=== PATIENT | male | born 1950 | race African-American/Black ===

== ENCOUNTER 2018-09-17 02:23 | Emergency (ER) | payer OTHER ==
[~2018-09-17] VITALS: Ht 182.9 cm; Wt 104.3 kg
[2018-09-17] MEDS ORDERED: cloNIDine HCL 0.1 MG TAB PO ONE ×2 (03:00→05:30)
[2018-09-17] MEDS ORDERED: IPRATROPIUM BROM 0.5 MG/2.5ML INH SOL NEB ONE (04:00)
[2018-09-17] MEDS ORDERED: ALBUTEROL SULF 2.5 MG/0.5ML(0.5%) NEB SOLN NEB ONE (04:00)
[2018-09-17] MEDS ORDERED: cloNIDine HCL 0.1 MG TAB ONE (04:05)
[2018-09-17 04:41] LABS: Albumin 3.7 g/dL (3.4-5.0); Calcium 8.1 mg/dL (8.5-10.1); Magnesium 2.5 mg/dL (1.6-2.6); Potassium 3.3 mmol/L (3.5-5.1)
[2018-09-17 04:43] LABS: Basophils # (auto) 0.1 uL; Basophils % (auto) 0.9 % (0.0-2.0); Eosinophils # (auto) 0.2 uL; Eosinophils % (auto) 1.9 % (0.0-7.0); Hematocrit 42.7 % (41.0-53.0); Hemoglobin 14.2 g/dL (13.5-17.5); Lymphocytes # (auto) 1.9 uL; Lymphocytes % (auto) 17.8 % (10.0-50.0); Mean Corpuscular Hemoglobin 29.4 pg (28.0-32.0); Mean Corpuscular Hgb Conc. 33.3 g/dL (32.0-36.0); Mean Corpuscular Volume 88.4 fL (80.0-100.0); Monocytes # (auto) 0.9 uL; Monocytes % (auto) 8.7 % (0.0-12.0); Neutrophils # (auto) 7.6 uL; Neutrophils % (auto) 70.7 % (37.0-80.0); Platelet Count (auto) 241 10^3/uL (140-450); Red Blood Cells 4.83 10^6/uL (4.5-5.90); Red Cell Distribution Width 14.5 % (11.8-14.3); White Blood Cell 10.8 10^3/uL (4.4-10.8)
[2018-09-17 04:44] LABS: Urine Bacteria FEW /hpf (None Seen); Urine Blood Negative /uL (Negative); Urine Mucus FEW (None Seen); Urine Specific Gravity 1.009 (1.001-1.035); Urine WBC 1 /hpf (0 - 3)
[2018-09-17 04:47] LABS: BUN/Creatinine Ratio 9.2; Bilirubin, Total 0.6 mg/dL (0.2-1.0); Total Protein 7.6 g/dL (6.4-8.2)
[2018-09-17 06:07] VITALS: BP 128/77
== END 2018-09-17 06:46 | disposition home or self-care (01) ==
LOC: EDBD 02:23 → ER 02:30
DX: I11.0 Hypertensive heart disease with heart failure (principal); I50.9 Heart failure, unspecified
CPT/HCPCS: 36415; 71045; 80053; 81001; 83735; 83880; 84484; 85025; 93005; 94640; 99284; J7611; J7644

== ENCOUNTER 2019-12-01 10:00 | Inpatient (IN) | payer OTHER ==
[2019-12-01] VITALS (7 sets, daily range): BP systolic 94–126; BP diastolic 46–67
[~2019-12-01] VITALS: Ht 165.1 cm; Wt 110.0 kg
[2019-12-01] MEDS ORDERED: SODIUM CHLORIDE 0.9% 1,000 ML IVB ONE (10:32)
[2019-12-01] MEDS ORDERED: METOCLOPRAMIDE HCL 5MG/ml INJ 2ml VIAL IV ONE (10:45)
[2019-12-01 10:52] LABS: Basophils # (auto) 0 10 ^3/uL (0-0.2); Basophils % (auto) 0.1 % (0.0-2.0); Eosinophils # (auto) 0 10 ^3/uL (0-0.8); Nucleated Red Blood Cells % 0.2 %
[2019-12-01 10:54] LABS: Hematocrit 14.1 % (41.0-53.0); Lymphocytes # (auto) 2.2 10 ^3/uL (0.4-5.4); Lymphocytes % (auto) 8.8 % (10.0-50.0); Mean Corpuscular Hemoglobin 29.8 pg (28.0-32.0); Mean Corpuscular Hgb Conc. 31.8 g/dL (32.0-36.0); Mean Corpuscular Volume 93.6 fL (80.0-100.0); Monocytes # (auto) 2.1 10 ^3/uL (0-1.3); Monocytes % (auto) 8.1 % (0.0-12.0); Neutrophils # (auto) 21.1 10 ^3/uL (1.6-8.6); Platelet Count (auto) 153 10^3/uL (140-450); Red Blood Cells 1.51 10^6/uL (4.5-5.90); Red Cell Distribution Width 14.5 % (11.8-14.3); White Blood Cell 25.4 10^3/uL (4.4-10.8)
[2019-12-01 10:59] LABS: Hemoglobin 4.5 g/dL (13.5-17.5)
[2019-12-01 11:12] LABS: Albumin 2.3 g/dL (3.4-5.0); Calcium 7.6 mg/dL (8.5-10.1); Magnesium 2.4 mg/dL (1.6-2.6); Potassium 3.6 mmol/L (3.5-5.1)
[2019-12-01 11:18] LABS: BUN/Creatinine Ratio 26.8; Bilirubin, Total 0.1 mg/dL (0.2-1.0); Total Protein 4.8 g/dL (6.4-8.2)
[2019-12-01 12:40] LABS: Hematocrit 14.6 % (41.0-53.0)
[2019-12-01 12:42] LABS: Hemoglobin 4.7 g/dL (13.5-17.5)
[2019-12-01 17:02] LABS: Urine Bacteria FEW /hpf (None Seen); Urine Blood Negative /uL (Negative); Urine Specific Gravity 1.017 (1.001-1.035); Urine WBC 1 /hpf (0 - 3)
[2019-12-01] MEDS ORDERED: PANTOPRAZOLE 40mg/50ML NS AE 50 ML IV ONE (20:15)
[2019-12-01] MEDS ORDERED: PANTOPRAZOLE 40 MG/10 ML VIAL INJ IV ONE (20:15)
[2019-12-01 21:42] LABS: Hematocrit 20.3 % (41.0-53.0)
[2019-12-01 21:53] LABS: Hemoglobin 6.5 g/dL (13.5-17.5)
[2019-12-01] MEDS ORDERED: PIPERACILLIN-TAZOB 3.375GM 100 ML IV ONE (23:15)
[2019-12-02] VITALS (13 sets, daily range): BP systolic 110–153; BP diastolic 53–86
[2019-12-02 00:03] LABS: Lactic Acid w/Reflex 2.9 mmol/L (0.4-2.0)
[2019-12-02] MEDS ORDERED: OCTREOTIDE ACETATE 500 MCG/ML VL ONE (01:34)
[2019-12-02] MEDS: OCTREOTIDE ACETATE 500 MCG in SODIUM CHL 0.9% 99 ML IV SCH ×2 (01:43→11:19)
[2019-12-02] MEDS ORDERED: ONDANSETRON HCL 4 MG/2 ML VIAL IV PRN (01:45)
[2019-12-02] MEDS ORDERED: metroNIDAZOLE 500MG/100ML 100 ML IV ONE (01:45)
[2019-12-02] MEDS ORDERED: NITROGLYCERIN 0.4 MG SL TAB SL PRN (01:45)
[2019-12-02] MEDS ORDERED: MORPHINE SULFATE 4 MG/ML SYR/VIAL IV PRN (01:45)
[2019-12-02] MEDS ORDERED: MORPHINE SULF INJ 2 MG/ML SYRINGE 1ML IV PRN (01:45)
[2019-12-02] MEDS: SODIUM CHLORIDE 0.9% 1,000 ML IV SCH ×2 (01:50→17:24)
[2019-12-02] MEDS: PANTOPRAZOLE 40mg/50ML NS AE 50 ML IV SCH ×3 (01:50→11:58)
--- NOTE | 2019-12-02 02:48 | NUR ---
Telemetry admit from ER KALLI GRAY admitted to Telemetry unit after SBAR received. Patient oriented to Lashon Capone, primary RN, unit, room, bed, and unit policies regarding patient care and visiting hours. Patient now on continuous telemetry monitoring, tele box # [[id number]] and telemetry reading on arrival to unit is [SR [id number]]. Patient placed on bedside oxygen, weighed by bedscale and encouraged to call if they need something. All questions and concerns addressed, patient verbalized understanding. Note: []
--- NOTE | 2019-12-02 04:01 | NUR ---
BLOOD TRANSFUSION STARTED @ 0359. VITALS STABLE, TEMP 98.6, HR 84, RR 17, BP 116/61, O2 SAT 100%. PATIENT EDUCATED ON S/S OF REACTION OF TRANSFUSION. PATIENT VERBALIZED UNDERSTANDING. CONTINUE TO MONITOR.
[2019-12-02] MEDS ORDERED: POTA10TA79 PO (05:58)
[2019-12-02] MEDS ORDERED: LISI40TA PO (05:58)
[2019-12-02] MEDS ORDERED: AMLO5TAB15 PO (05:58)
[2019-12-02] MEDS ORDERED: ASPI-404 PO (05:58)
[2019-12-02] MEDS ORDERED: TERA5CAP42 PO (05:58)
[2019-12-02] MEDS ORDERED: FURO1TAB33 PO (05:58)
[2019-12-02] MEDS ORDERED: DORZ2SOL18 EACHEYE (05:58)
[2019-12-02] MEDS ORDERED: ATOR20TA50 PO (05:58)
[2019-12-02] MEDS ORDERED: ATEN50TA PO (05:58)
[2019-12-02] MEDS ORDERED: PIPERACILLIN-TAZOB 3.375GM 100 ML IV SCH (06:00)
[2019-12-02] MEDS ORDERED: metroNIDAZOLE 500MG/100ML 100 ML IV SCH (06:00)
--- NOTE | 2019-12-02 06:50 | NUR ---
BLOOD TRANSFUSION COMPLETED @ 0647, PATIENT TOLERATED WELL. NO S/S OF REACTION OF TRANSFUSION NOTED. VITALS STABLE, TEMP 99, HR 89, RR 20. BP 139/80. O2 SAT 98% ON 2L/NC. CONTINUE TO MONITOR.
[2019-12-02] MEDS: metroNIDAZOLE 500MG/100ML 100 ML IV SCH ×3 (07:00→22:55)
--- NOTE | 2019-12-02 07:21 | NUR ---
CALLED PHARMACY TO RESCHEDULE PATIENT'S ABX SINCE PATIENT JUST FINISHED BLOOD TRANSFUSION EARLIER. DAY SHIFT RN CHEKO AWARE. CONTINUE TO MONITOR.
--- NOTE | 2019-12-02 07:30 | NUR ---
Opening Shift Note RECEIVED REPORT FROM NOC RN. Assumed care of patient, awake and alert. PATIENT ON OXYGEN AT 2 LPM VIA NASAL CANNULA WITH no S/S of distress/SOB or pain. BED IN LOWEST, LOCKED POSITION WITH SIDERAILS UP x2 AND CALL LIGHT WITHIN REACH. Instructed on POC and to call for assist PRN, will continue to monitor for changes Q1hr and PRN.
[2019-12-02 07:55] LABS: Hemoglobin 8.4 g/dL (13.5-17.5)
[2019-12-02 07:57] LABS: Hematocrit 25.5 % (41.0-53.0)
[2019-12-02] MEDS: PIPERACILLIN-TAZOB 3.375GM 100 ML IV SCH ×3 (08:56→19:56)
--- NOTE | 2019-12-02 15:54 | NUR ---
0283 12/02/19 Contacted [facility] and spoke with operations support analyst Marie (working with assigned adult protective caseworker Deyanira)and requested that authorization be provided for patient's continued stay. Per Marie inpatient authorization has been extended until 12/03/19 1000-she will have the extended authorization faxed over. I asked Marie to let Mirror [employer] Supervisor Deyanira know that patient is scheduled for EGD/colonoscopy tomorrow. Per Dr. Mike Jones patient not stable for transfer today.
--- NOTE | 2019-12-02 19:56 | NUR ---
RECEIVED PATIENT FROM DAY SHIFT RN. PATIENT RESTING IN BED. NO S/S OF DISTRESS NOTED. DENIED PAIN FOR NOW. REINFORCED NPO AFTER MIDNIGHT FOR PROCEDURE TOMORROW. PATIENT VERBALIZED UNDERSTANDING. POC INSTRUCTED AND ENCOURAGED PATIENT TO CALL FOR MUSIC TEACHER IF NEEDED. BED IN LOWEST POSITION WITH SIDE RAILS UP X 2. CALL GIBBS WITHIN REACH. ALARM ON. CONTINUE TO MONITOR FOR CHANGES Q1H AND PRN
[2019-12-02] MEDS: PANTOPRAZOLE 40 MG/10 ML VIAL INJ IV SCH (21:40)
--- NOTE | 2019-12-02 23:00 | NUR ---
IV removal IV ON RIGHT HAND WENT BAD. IV DC'd with clean sterile technique, catheter fully intact. Pressure dressing applied to site. Patient tolerated well. NOTE:
--- NOTE | 2019-12-03 00:10 | NUR ---
PATIENT SLEEPING. WATER REMOVED FROM BEDSIDE. NPO FROM NOW ON. CONTINUE TO MONITOR.
[2019-12-03] MEDS: PIPERACILLIN-TAZOB 3.375GM 100 ML IV SCH ×4 (02:10→20:57)
--- NOTE | 2019-12-03 03:45 | NUR ---
PATIENT SLEEPING. NO S/S OF DISTRESS NOTED. CONTINUE CARE.
[2019-12-03] MEDS: SODIUM CHLORIDE 0.9% 1,000 ML IV SCH ×2 (04:25→17:45)
[2019-12-03 05:00] VITALS: BP 133/83
[2019-12-03] MEDS: metroNIDAZOLE 500MG/100ML 100 ML IV SCH ×3 (06:19→23:33)
[2019-12-03 06:56] LABS: Hematocrit 24.7 % (41.0-53.0)
[2019-12-03 06:57] LABS: Mean Corpuscular Hgb Conc. 32.5 g/dL (32.0-36.0); Mean Corpuscular Volume 92.4 fL (80.0-100.0); Platelet Count (auto) 167 10^3/uL (140-450); Red Blood Cells 2.68 10^6/uL (4.5-5.90); Red Cell Distribution Width 15.6 % (11.8-14.3); White Blood Cell 25.2 10^3/uL (4.4-10.8)
[2019-12-03 07:07] LABS: Basophils % (manual) 0 (0.0-2.0); Blast Cells 0; Eosinophils % (manual) 0 (0-7); Metamyelocytes % 0; Myelocytes % 0; Promyelocytes % 0; Reactive Lymphocytes 0
[2019-12-03 07:10] LABS: Albumin 2.5 g/dL (3.4-5.0); Potassium 4.1 mmol/L (3.5-5.1)
[2019-12-03 07:14] LABS: BUN/Creatinine Ratio 22.9; Bilirubin, Total 0.6 mg/dL (0.2-1.0); Total Protein 5.5 g/dL (6.4-8.2)
[2019-12-03 07:39] LABS: Band Neutrophils % (manual) 3; Lymphocytes % (manual) 6 (10.0-50.0); Monocytes % (manual) 4 (0-12)
[2019-12-03 08:00] VITALS: BP 147/83
[2019-12-03] MEDS ORDERED: fentaNYL CITRATE 100 MCG/2 ML VL ONE (08:20)
[2019-12-03] MEDS ORDERED: FLUMAZENIL 0.1 MG/ML INJ 10ML MDV IV ONE (08:20)
[2019-12-03] MEDS ORDERED: diphenhdrAMINE HCL 50 MG/1 ML VL ONE (08:20)
[2019-12-03] MEDS ORDERED: LIDOCAINE VISCOUS 2% 15ML UD ONE (08:20)
[2019-12-03] MEDS ORDERED: MIDAZOLAM HCL 5 MG/ML-1ML VIAL ONE (08:20)
[2019-12-03] MEDS ORDERED: SODIUM CHLORIDE LOCK 10 ML ONE (08:20)
[2019-12-03] MEDS ORDERED: NALOXONE HCL 0.4 MG/ML VIAL ONE (08:20)
[2019-12-03] MEDS ORDERED: ADENOSINE 91 MG in GIVE UN-DILUTED 0 ML IV STA (08:33)
[2019-12-03 08:37] VITALS: BP 147/83
[2019-12-03] MEDS: PANTOPRAZOLE 40 MG/10 ML VIAL INJ IV SCH ×2 (10:00→22:57)
--- NOTE | 2019-12-03 10:19 | NUR ---
GI at bedside MD Smith at bedside, aware of patient status. Per MD Smith, EGD will be cancelled for today. MD Smith requesting for stress test to be read today and INR must be done today for patient to have procedure tomorrow. Notified MD Smith regarding MD Jimenez's note to have EGD done regardless of whether stress test was done or not. Per MD Smith, patient will be rescheduled for EGD tomorrow if stress test and INR are done today.
--- NOTE | 2019-12-03 11:30 | NUR ---
Opening Shift Note Assumed care of patient, awake and alert. No S/S of distress/SOB or pain. Instructed on POC and to call for assist PRN, will continue to monitor for changes Q1hr and PRN. Fall precautions in place per safety protocol.
--- NOTE | 2019-12-03 12:24 | NUR ---
Nutrition Assessment Notes Please refer to link for full assessment notes. Est energy needs: 3091-9443 kcals (12-15 kcal/kgBW) Est protein needs: 74-81 gms/day (1.0-1.1 gm/kgAdjBW) Will continue to monitor and reassess prn. Addendum: 12/03/19 at [address] Amended: Links added.
[2019-12-03 12:40] LABS: INR 1.15 (0.9-1.15); Partial Thromboplastin Time < 20.0 sec (23.64-32.05)
[2019-12-03 13:00] VITALS: BP 156/121
--- NOTE | 2019-12-03 14:00 | NUR ---
Paged MD Jones regarding patients blood pressure reading 156/121. Per MD Jones, no new orders at this time. Willc cont to monitor patient.
[2019-12-03 17:00] VITALS: BP 162/87
--- NOTE | 2019-12-03 17:43 | NUR ---
Paged Hospitalist site acquisition manager regarding Patient BP 160/87. Per MD Medrano, order labetalol 10mg IV Q2H for SBP >150. Order read back and verified. Will carry out new orders and will cont to monitor patient.
[2019-12-03] MEDS: LABETALOL HCL 5 MG/ML ML 20ML VIAL IV PRN (17:57)
--- NOTE | 2019-12-03 19:23 | NUR ---
Endorsed care to night RN Kathy including MD Smith aware of results on stress test and INR done. Patient resting in bed, no distress, sob, or pain noted.
--- NOTE | 2019-12-03 19:23 | NUR ---
Opening Shift Note Assumed care of patient, awake and alert. No S/S of distress/SOB or pain. Bed in lowest locked position, side rails up x2, call light within reach. Patient aware to call for standby assistance before getting out of bed, patient verbalized understanding. Instructed on POC and to call for assist PRN, will continue to monitor for changes Q1hr and PRN.
[2019-12-03 22:00] VITALS: BP 159/90
--- NOTE | 2019-12-03 22:10 | NUR ---
Blood pressure noted to be 159/90 mm Hg during 22:00 vital sign check. Patient reassessed by this RN, blood pressure 148/86 mm Hg. No s/s of distress, will continue care.
[2019-12-04] MEDS: PIPERACILLIN-TAZOB 3.375GM 100 ML IV SCH ×4 (02:30→20:31)
[2019-12-04 05:00] VITALS: BP 146/86
[2019-12-04 05:56] LABS: Basophils # (auto) 0.1 10 ^3/uL (0-0.2); Basophils % (auto) 0.5 % (0.0-2.0); Eosinophils # (auto) 0.1 10 ^3/uL (0-0.8); Eosinophils % (auto) 0.6 % (0.0-7.0); Hematocrit 27.7 % (41.0-53.0); Hemoglobin 8.9 g/dL (13.5-17.5); Lymphocytes # (auto) 2.3 10 ^3/uL (0.4-5.4); Lymphocytes % (auto) 12.4 % (10.0-50.0); Mean Corpuscular Hemoglobin 30.1 pg (28.0-32.0); Monocytes # (auto) 1.8 10 ^3/uL (0-1.3); Monocytes % (auto) 9.9 % (0.0-12.0); Neutrophils # (auto) 14.3 10 ^3/uL (1.6-8.6); Neutrophils % (auto) 76.6 % (37.0-80.0); Nucleated Red Blood Cells % 0.9 %; Platelet Count (auto) 165 10^3/uL (140-450); Red Blood Cells 2.95 10^6/uL (4.5-5.90); Red Cell Distribution Width 15.7 % (11.8-14.3); White Blood Cell 18.7 10^3/uL (4.4-10.8)
[2019-12-04 06:13] LABS: Potassium 3.2 mmol/L (3.5-5.1)
[2019-12-04 06:27] LABS: Albumin 2.7 g/dL (3.4-5.0); BUN/Creatinine Ratio 13.7; Bilirubin, Total 0.8 mg/dL (0.2-1.0); Total Protein 5.5 g/dL (6.4-8.2)
[2019-12-04] MEDS: SODIUM CHLORIDE 0.9% 1,000 ML IV SCH ×2 (06:44→20:31)
[2019-12-04] MEDS: metroNIDAZOLE 500MG/100ML 100 ML IV SCH ×3 (06:44→23:56)
--- NOTE | 2019-12-04 07:02 | NUR ---
Closing Note Patient sitting up in bed, awake and alert. No s/s of distress. Call light within reach. Care endorsed to dayshift RN.
--- NOTE | 2019-12-04 07:55 | NUR ---
OPENING SHIFT NOTE Assumed care of patient. PT is awake and alert. No S/S of distress/SOB. Instructed on POC and to call for assist PRN, will continue to monitor for changes Q1hr and PRN.
[2019-12-04 08:00] VITALS: BP 167/94
[2019-12-04] MEDS ORDERED: FLUMAZENIL 0.1 MG/ML INJ 10ML MDV IV ONE (09:32)
[2019-12-04] MEDS ORDERED: NALOXONE HCL 0.4 MG/ML VIAL ONE (09:32)
[2019-12-04] MEDS ORDERED: SODIUM CHLORIDE LOCK 10 ML ONE (09:33)
[2019-12-04] MEDS ORDERED: diphenhdrAMINE HCL 50 MG/1 ML VL ONE (09:33)
[2019-12-04] MEDS ORDERED: LIDOCAINE VISCOUS 2% 15ML UD ONE (09:33)
[2019-12-04] MEDS: PANTOPRAZOLE 40 MG/10 ML VIAL INJ IV SCH (09:40)
[2019-12-04] MEDS: MIDAZOLAM HCL 5 MG/ML-1ML VIAL ONE ×2 (09:55→09:58)
[2019-12-04] MEDS: fentaNYL CITRATE 100 MCG/2 ML VL ONE ×2 (09:55→09:58)
--- NOTE | 2019-12-04 09:56 | NUR ---
Took PT DOWN TO GI LAB FOR PROCEDURE. INFORMED GI LAB NURSE OF HIGH BLOOD PRESSURE. STATED NO TO ADMINISTER PRN MEDICATIONS HE WOULD BE MEDICATED FOR PROCEDURE. NO DISTRESS NOTED FROM PT.
[2019-12-04 12:00] VITALS: BP 152/92
--- NOTE | 2019-12-04 13:36 | NUR ---
RECEIVED CALL FROM MIDDLE SCHOOL SCIENCE TEACHER REGARDING [facility] TRANSFER. CONTACTED DR VALDERRAMA. DR VALDERRAMA STATED THAT THE PT WILL NOT BE TRANSFERS HE WILL BE DISCHARGED TOMORROW 12/04. MIDDLE SCHOOL SCIENCE TEACHER IS AWARE.
[2019-12-04] MEDS: LABETALOL HCL 5 MG/ML ML 20ML VIAL IV PRN (16:33)
[2019-12-04 17:00] VITALS: BP 155/85
[2019-12-04 20:00] VITALS: BP 145/92
[2019-12-04 22:00] VITALS: BP 145/92
[2019-12-05] VITALS (9 sets, daily range): BP systolic 102–148; BP diastolic 61–91
[2019-12-05] MEDS: PIPERACILLIN-TAZOB 3.375GM 100 ML IV SCH ×4 (02:40→20:38)
[2019-12-05 05:40] LABS: Hematocrit 23.1 % (41.0-53.0); Hemoglobin 7.3 g/dL (13.5-17.5); Mean Corpuscular Hemoglobin 29.8 pg (28.0-32.0); Mean Corpuscular Hgb Conc. 31.5 g/dL (32.0-36.0); Mean Corpuscular Volume 94.6 fL (80.0-100.0); Platelet Count (auto) 192 10^3/uL (140-450); Red Blood Cells 2.44 10^6/uL (4.5-5.90); Red Cell Distribution Width 16.2 % (11.8-14.3); White Blood Cell 23.3 10^3/uL (4.4-10.8)
[2019-12-05 05:44] LABS: Basophils % (manual) 0 (0.0-2.0); Blast Cells 0; Promyelocytes % 0; Reactive Lymphocytes 0
[2019-12-05 05:56] LABS: Albumin 2.3 g/dL (3.4-5.0); Calcium 7.9 mg/dL (8.5-10.1); Potassium 3.2 mmol/L (3.5-5.1)
[2019-12-05] MEDS: SODIUM CHLORIDE 0.9% 1,000 ML IV SCH ×2 (06:00→09:01)
[2019-12-05 06:09] LABS: BUN/Creatinine Ratio 15.8; Bilirubin, Total 0.4 mg/dL (0.2-1.0); Total Protein 4.8 g/dL (6.4-8.2)
[2019-12-05] MEDS: metroNIDAZOLE 500MG/100ML 100 ML IV SCH ×3 (06:48→21:52)
--- NOTE | 2019-12-05 06:48 | NUR ---
Closing Note Patient sitting up in bed, awake and alert. No s/s of distress. Call light within reach. Care endorsed to dayshift RN.
[2019-12-05 08:15] LABS: Band Neutrophils % (manual) 5; Eosinophils % (manual) 1 (0-7); Lymphocytes % (manual) 25 (10.0-50.0); Metamyelocytes % 1; Monocytes % (manual) 6 (0-12); Myelocytes % 1
[2019-12-05] MEDS ORDERED: POTASSIUM CHL 20 Meq TABLET PO ONE (08:30)
[2019-12-05] MEDS: PANTOPRAZOLE 40 MG TAB PO SCH (09:00)
--- NOTE | 2019-12-05 11:07 | NUR ---
SPOKE WITH . DIRECTED TO CALL [facility]. [facility] STATED PT IS NOT STABLE FOR TRANSFER. STATED THEY WOULD CONTACT DR VALDERRAMA. WILL SPEAK WITH MD VALDERRAMA.
[2019-12-05] MEDS ORDERED: GOLYTELY 4L KIT PO ONE (13:00)
--- NOTE | 2019-12-05 13:49 | NUR ---
PHONED AIRBRUSH PAINTER ABOUT BLOOD TUBING SUPPLY FOR BLOOD ADMINISTRATION ORDER. SHE STATED TO CIRILO VELÁSQUEZ IN EDUCATION. AWAITING CALLBACK.
--- NOTE | 2019-12-05 19:04 | NUR ---
TRANSFUSED 1 UNIT PRBC'S. PT TOLERATED WELL. VITAL SIGNS THROUGHOUT REMAINED WNL. WILL CONTINUE TO MONITOR AND ENDORSE TO NIGHT NURSE.
[2019-12-05 21:04] LABS: Hematocrit 25.9 % (41.0-53.0)
[2019-12-06] VITALS (8 sets, daily range): BP systolic 131–153; BP diastolic 72–84
[2019-12-06 05:23] LABS: Hemoglobin 7.3 g/dL (13.5-17.5); Mean Corpuscular Hemoglobin 29.2 pg (28.0-32.0)
[2019-12-06 05:25] LABS: Hematocrit 23.1 % (41.0-53.0); Mean Corpuscular Hgb Conc. 31.8 g/dL (32.0-36.0); Mean Corpuscular Volume 91.9 fL (80.0-100.0); Platelet Count (auto) 176 10^3/uL (140-450); Red Blood Cells 2.51 10^6/uL (4.5-5.90); Red Cell Distribution Width 16.5 % (11.8-14.3); White Blood Cell 18.4 10^3/uL (4.4-10.8)
[2019-12-06] MEDS: PIPERACILLIN-TAZOB 3.375GM 100 ML IV SCH ×4 (05:28→20:21)
[2019-12-06 05:45] LABS: Basophils % (manual) 0 (0.0-2.0); Blast Cells 0; Metamyelocytes % 0; Myelocytes % 0; Promyelocytes % 0; Reactive Lymphocytes 0
[2019-12-06] MEDS ORDERED: GOLYTELY 4L KIT PO ONE (06:00)
[2019-12-06 06:43] LABS: Band Neutrophils % (manual) 5; Eosinophils % (manual) 2 (0-7); Lymphocytes % (manual) 24 (10.0-50.0); Monocytes % (manual) 6 (0-12)
[2019-12-06] MEDS: metroNIDAZOLE 500MG/100ML 100 ML IV SCH ×3 (07:00→23:23)
[2019-12-06] MEDS ORDERED: SIMETHICONE 40 MG/0.6 ML ORAL DROP ONE (08:29)
[2019-12-06] MEDS ORDERED: NALOXONE HCL 0.4 MG/ML VIAL ONE (08:30)
[2019-12-06] MEDS ORDERED: FLUMAZENIL 0.1 MG/ML INJ 10ML MDV IV ONE (08:30)
[2019-12-06] MEDS ORDERED: SODIUM CHLORIDE LOCK 10 ML ONE (08:30)
[2019-12-06] MEDS ORDERED: diphenhdrAMINE HCL 50 MG/1 ML VL ONE (08:31)
--- NOTE | 2019-12-06 09:09 | NUR ---
Patient taken to OR via gurney for colonoscopy. Will cont to monitor patient when he returns to unit.
[2019-12-06] MEDS: fentaNYL CITRATE 100 MCG/2 ML VL ONE ×2 (09:20→09:23)
[2019-12-06] MEDS: MIDAZOLAM HCL 5 MG/ML-1ML VIAL ONE ×3 (09:20→09:26)
--- NOTE | 2019-12-06 10:15 | NUR ---
Patient back from procedure. Patient shows no signs of distress, sob, or pain. Will cont to monitor patient.
[2019-12-06] MEDS: PANTOPRAZOLE 40 MG TAB PO SCH (10:34)
--- NOTE | 2019-12-06 11:36 | NUR ---
Hospitalist at bedside MD Jones at bedside, aware of patient status including low K level on 12/04. MD Jones ordered am LABS and HH for 1800 tonight. Will cont to monitor patient.
[2019-12-06] MEDS: SODIUM CHLORIDE 0.9% 1,000 ML IV SCH (12:25)
--- NOTE | 2019-12-06 13:40 | NUR ---
Nutrition Follow-up Wt.: 107.20 kg Pt was NPO for colonoscopy today. Currently of 2g Na diet with good PO intake aeb intake of 75%. Will continue to monitor PO intake, skin status, pertinent labs and weight trends. Will f/u in 3 to 5 days. Est energy needs: 9507-0734 kcals (12-15 kcal/kg BW) Est protein needs: 74-81 gms/day (1.0-1.1 gm/kg AdjBW) Labs 12/04: K 3.2 L, Cl 114 H, BUN 23 H, Cr 1.46 H, Glucose 139 H, Ca 7.9 L, TP 4.8 L, Albumin 2.3 L Skin: Phillip scale 21, low risk, no wounds. GI: Pt had BM on 12/05/19 per documentation analyst. PES: 1) Altered nutrition related lab values r/t current medical condition aeb hypernatremia, hyperchloremia, hyperglycemia, elevated RFTs, low GFR, hypocalcemia, hypoproteinemia, hypoalbuminemia Recommendations: 1) Continue current plan of care
--- NOTE | 2019-12-06 16:19 | NUR ---
assessment Patient is a 69 year old male who is alert and oriented. Patients cognitive abilities are intact. Prior to admission patient lived home with his Oscar and functioned independently. Patient informed me he is able to care for his own ADLs. Patient has been informed regarding order to transfer to [facility]. Patient agrees to transfer. Per patient his PCP is Dr Garrett in [place]. I informed patient he has a right to speak to a social media senior associate regarding all care. I informed patient he has a right to participate in any and all discharge planning. Patient does not have a POA and advanced directive. I have offered patient information on POA and advanced directives. I informed the patient the advantages and benefits of having an Advanced Directive. Patient verbalized understanding and agreed to discharge plan. Addendum: 12/06/19 at 1621 by Catina GARCIA Amended: Links added.
--- NOTE | 2019-12-06 19:23 | NUR ---
Endorsed care to mirza Salguero. Patient restin gin bed, no distress, sob, or pain noted.
--- NOTE | 2019-12-06 19:29 | NUR ---
Received critical hemoglobin level of 6.8.
[2019-12-06 19:30] LABS: Hematocrit 21.5 % (41.0-53.0)
[2019-12-06 19:35] LABS: Hemoglobin 6.8 g/dL (13.5-17.5)
--- NOTE | 2019-12-06 19:48 | NUR ---
PLACED 1 UNIT PRBC ORDER VIA COMMUNICATION ORDER FROM MD Lolly VALDERRAMA FOR HEMOGLOBIN <7.0
--- NOTE | 2019-12-06 20:15 | NUR ---
IV insertion IV access obtained, via clean sterile technique by inserting 22 gauge catheter at right hand after 1 attempt(s). IV secured properly. No trauma to site. Patient tolerated procedure well.
--- NOTE | 2019-12-06 21:19 | NUR ---
1 UNIT OF PRBC TRANSFUSION STARTED AT THIS TIME.
[2019-12-07] VITALS (7 sets, daily range): BP systolic 134–160; BP diastolic 76–89
--- NOTE | 2019-12-07 | NUR ---
Blood transfusion completed at this time. No suspected reaction.
[2019-12-07] MEDS: PIPERACILLIN-TAZOB 3.375GM 100 ML IV SCH ×4 (01:33→20:22)
[2019-12-07] MEDS: SODIUM CHLORIDE 0.9% 1,000 ML IV SCH ×2 (01:39→15:05)
[2019-12-07 02:09] LABS: Hematocrit 22.5 % (41.0-53.0)
[2019-12-07 02:11] LABS: Hemoglobin 7.3 g/dL (13.5-17.5)
[2019-12-07] MEDS: metroNIDAZOLE 500MG/100ML 100 ML IV SCH ×3 (06:37→23:39)
--- NOTE | 2019-12-07 07:20 | NUR ---
Opening shift note Care of patient assumed from NOC RN. patient is AOx4 no s/s of distress, sob or pain noted at this time. Bed is in lowest locked position, side rails up x2, call light within reach. Updated patient on plan of care and patient verbalized understanding. I will continue to monitor Q1HR and PRN.
[2019-12-07 08:17] LABS: Eosinophils # (auto) 0.3 10 ^3/uL (0-0.8); Hemoglobin 7.9 g/dL (13.5-17.5); Lymphocytes # (auto) 2.2 10 ^3/uL (0.4-5.4)
[2019-12-07 08:19] LABS: Basophils # (auto) 0.1 10 ^3/uL (0-0.2); Basophils % (auto) 0.4 % (0.0-2.0); Eosinophils % (auto) 2.6 % (0.0-7.0); Hematocrit 24.9 % (41.0-53.0); Mean Corpuscular Hemoglobin 28.4 pg (28.0-32.0); Mean Corpuscular Hgb Conc. 31.7 g/dL (32.0-36.0); Mean Corpuscular Volume 89.4 fL (80.0-100.0); Monocytes # (auto) 1.1 10 ^3/uL (0-1.3); Monocytes % (auto) 8.9 % (0.0-12.0); Neutrophils # (auto) 9.1 10 ^3/uL (1.6-8.6); Neutrophils % (auto) 71.1 % (37.0-80.0); Nucleated Red Blood Cells % 1.4 %; Platelet Count (auto) 177 10^3/uL (140-450); Red Blood Cells 2.78 10^6/uL (4.5-5.90); Red Cell Distribution Width 18.7 % (11.8-14.3); White Blood Cell 12.8 10^3/uL (4.4-10.8)
[2019-12-07 08:38] LABS: Albumin 2.4 g/dL (3.4-5.0); BUN/Creatinine Ratio 11.7; Calcium 7.8 mg/dL (8.5-10.1)
[2019-12-07 08:40] LABS: Bilirubin, Total 0.7 mg/dL (0.2-1.0); Total Protein 5.1 g/dL (6.4-8.2)
[2019-12-07] MEDS: PANTOPRAZOLE 40 MG TAB PO SCH (09:10)
[2019-12-07 09:16] LABS: Potassium 2.8 mmol/L (3.5-5.1)
--- NOTE | 2019-12-07 09:23 | NUR ---
Called Physician Received call from lab regarding critical k+ value of 2.8. Notified Dr. Jones and Per MD give 40 MEQ of Potassium PO.
[2019-12-07] MEDS ORDERED: POTASSIUM CHL 20 Meq TABLET PO ONE ×2 (09:30→12:15)
[2019-12-07] MEDS: LABETALOL HCL 5 MG/ML ML 20ML VIAL IV PRN ×3 (11:25→23:40)
[2019-12-07] MEDS ORDERED: MORPHINE SULF INJ 2 MG/ML SYRINGE 1ML IV PRN (12:45)
--- NOTE | 2019-12-07 19:31 | NUR ---
CLOSING SHIFT NOTE Care of patient endorsed to NOC KAI Warren. No s/s of distress noted at this time.
--- NOTE | 2019-12-07 20:05 | NUR ---
Opening Shift Note Assumed care of patient, awake and alert. No S/S of distress/SOB or pain. Patient is on room air. Respirations even and unlabored. Instructed on POC and to call for assist PRN, will continue to monitor for changes Q1hr and PRN.
--- NOTE | 2019-12-07 20:25 | NUR ---
IV removal due to pain and occlusion at site IV DC'd with clean sterile technique, catheter fully intact. Pressure dressing applied to site. Patient tolerated well.
--- NOTE | 2019-12-07 23:30 | NUR ---
Stool sample sent to lab for stool occult test.
[2019-12-08] VITALS (8 sets, daily range): BP systolic 149–169; BP diastolic 79–89
[2019-12-08] MEDS: PIPERACILLIN-TAZOB 3.375GM 100 ML IV SCH ×2 (02:08→08:09)
[2019-12-08] MEDS: LABETALOL HCL 5 MG/ML ML 20ML VIAL IV PRN ×3 (02:29→22:14)
[2019-12-08] MEDS: SODIUM CHLORIDE 0.9% 1,000 ML IV SCH ×2 (04:42→17:45)
--- NOTE | 2019-12-08 05:10 | NUR ---
Blood pressure reassessed and is 149/88, HR of 73. PRN blood pressure medication not indicated at this time. Patient asymptomatic.
[2019-12-08 06:19] LABS: Basophils # (auto) 0 10 ^3/uL (0-0.2); Basophils % (auto) 0.4 % (0.0-2.0); Eosinophils # (auto) 0.3 10 ^3/uL (0-0.8); Eosinophils % (auto) 2.6 % (0.0-7.0); Hematocrit 23.6 % (41.0-53.0); Hemoglobin 7.7 g/dL (13.5-17.5); Lymphocytes # (auto) 1.6 10 ^3/uL (0.4-5.4); Lymphocytes % (auto) 14.6 % (10.0-50.0); Mean Corpuscular Hemoglobin 28.8 pg (28.0-32.0); Mean Corpuscular Hgb Conc. 32.7 g/dL (32.0-36.0); Mean Corpuscular Volume 88.1 fL (80.0-100.0); Monocytes # (auto) 1.2 10 ^3/uL (0-1.3); Monocytes % (auto) 10.6 % (0.0-12.0); Neutrophils # (auto) 7.9 10 ^3/uL (1.6-8.6); Neutrophils % (auto) 71.8 % (37.0-80.0); Nucleated Red Blood Cells % 0.5 %; Platelet Count (auto) 207 10^3/uL (140-450); Red Blood Cells 2.68 10^6/uL (4.5-5.90); Red Cell Distribution Width 18.8 % (11.8-14.3)
[2019-12-08] MEDS: metroNIDAZOLE 500MG/100ML 100 ML IV SCH ×3 (06:43→23:24)
[2019-12-08 06:48] LABS: Albumin 2.3 g/dL (3.4-5.0); BUN/Creatinine Ratio 10.1; Bilirubin, Total 0.4 mg/dL (0.2-1.0); Calcium 7.7 mg/dL (8.5-10.1); Total Protein 5.1 g/dL (6.4-8.2)
[2019-12-08 07:12] LABS: Potassium 2.9 mmol/L (3.5-5.1)
--- NOTE | 2019-12-08 07:13 | NUR ---
Critical Potassium Level Critical potassium level of 2.9 reported by Hemant aHynes. Hospitalist paged. Awaiting callback at this time. Will endorse to day shift RN. Patient asymptomatic.
--- NOTE | 2019-12-08 07:15 | NUR ---
CLOSING NOTE No S/S of distress/SOB or pain. Patient is on room air. Respirations even and unlabored.
[2019-12-08] MEDS ORDERED: POTASSIUM CHL 20 Meq TABLET PO ONE (07:30)
--- NOTE | 2019-12-08 08:00 | NUR ---
Received pt resting in bed, call light with in reach, no pain reported at this time, will continue to monitor pt.
[2019-12-08] MEDS: PANTOPRAZOLE 40 MG TAB PO SCH (10:17)
--- NOTE | 2019-12-08 10:45 | NUR ---
Dr. Smith / GI at bed side to see pt, discussed the plan of care with pt.
[2019-12-08] MEDS ORDERED: ATENOLOL 50 MG TAB PO ONE (11:30)
--- NOTE | 2019-12-08 11:45 | NUR ---
Dr. Jones at bed side to see pt, doctor discussed the plan of care with pt.
[2019-12-08] MEDS ORDERED: levoFLOXacin 750MG 150 ML IV SCH (12:00)
[2019-12-08] MEDS: POTASSIUM CHL 20 Meq TABLET PO SCH ×2 (12:24→22:13)
[2019-12-08] MEDS ORDERED: HEPARIN SODIUM (PORCINE) 5000 UNITS/ML 1ML VIAL IV ONE (14:15)
--- NOTE | 2019-12-08 14:15 | NUR ---
Radiology nurse, charge nurse, and nuclear medicine specialist attempted to draw the blood for the bleeding scan, as per radiology nurse a mid line order placed for the mid line nurse to come and place a new mid line and to draw the blood for the bleeding scan tomorrow.
--- NOTE | 2019-12-08 19:40 | NUR ---
Opening Shift Note Assumed care of patient, awake, AAOx4. No S/S of distress/SOB or pain. On room air and ambulatory. Bed in lowest locked position, side rails up x2, call light within reach. Instructed on POC and to call for assist PRN, will continue to monitor for changes Q1hr and PRN.
[2019-12-08] MEDS: TERAZOSIN HCL 1 MG CAP PO SCH (22:00)
[2019-12-08] MEDS: DORZOLAM-TIMOLOL(2/0.5%) OPTH(EYE) SOLN 10ML EACHEYE SCH (22:13)
[2019-12-08] MEDS: ATORVASTATIN 20 MG TAB PO SCH (22:13)
[2019-12-09 05:34] LABS: Basophils # (auto) 0 10 ^3/uL (0-0.2); Basophils % (auto) 0.3 % (0.0-2.0); Eosinophils # (auto) 0.3 10 ^3/uL (0-0.8); Eosinophils % (auto) 3.1 % (0.0-7.0); Hematocrit 22.6 % (41.0-53.0); Hemoglobin 7.5 g/dL (13.5-17.5); Lymphocytes # (auto) 1.9 10 ^3/uL (0.4-5.4); Lymphocytes % (auto) 17.5 % (10.0-50.0); Mean Corpuscular Hemoglobin 29.3 pg (28.0-32.0); Mean Corpuscular Hgb Conc. 33.2 g/dL (32.0-36.0); Mean Corpuscular Volume 88.3 fL (80.0-100.0); Monocytes # (auto) 1.1 10 ^3/uL (0-1.3); Monocytes % (auto) 10.4 % (0.0-12.0); Neutrophils # (auto) 7.3 10 ^3/uL (1.6-8.6); Neutrophils % (auto) 68.7 % (37.0-80.0); Nucleated Red Blood Cells % 0.2 %; Platelet Count (auto) 238 10^3/uL (140-450); Red Blood Cells 2.56 10^6/uL (4.5-5.90); Red Cell Distribution Width 18.4 % (11.8-14.3); White Blood Cell 10.7 10^3/uL (4.4-10.8)
[2019-12-09 05:40] VITALS: BP 127/84
[2019-12-09 05:48] LABS: Potassium 3.4 mmol/L (3.5-5.1)
[2019-12-09 05:59] LABS: Albumin 2.3 g/dL (3.4-5.0); BUN/Creatinine Ratio 10.8; Bilirubin, Total 0.4 mg/dL (0.2-1.0); Calcium 7.5 mg/dL (8.5-10.1); Total Protein 4.9 g/dL (6.4-8.2)
[2019-12-09] MEDS: metroNIDAZOLE 500MG/100ML 100 ML IV SCH (07:01)
--- NOTE | 2019-12-09 07:30 | NUR ---
Opening Shift Note Assumed care of patient. Pt is awake, alert and Ox4. No S/S of respiratory distress/SOB or pain. Pt reports no nausea at this time. On room air and with bathroom privilege. Bed in lowest position, brakes are locked, side rails up x2, call light within reach. POC discussed with patient. patient is instructed to call for assistance as needed. Will continue to monitor for changes Q1hr and PRN.
--- NOTE | 2019-12-09 07:40 | NUR ---
OPENING SHIFT NOTE: PATIENT RESTING IN BED. A/OX4 RESPIRATIONS EVEN AND UNLABORED. PATIENT REPORTS HAVING NAUSEA THIS AM, NOC RN ADMINISTERED ZOFRAN ORDERED, PATIENT HAS NOT C/O NAUSEA "IN A FEW DAYS", EMESIS REPORTED TO BE SMALL WITH RED BLOOD BY NOC RN IN REPORT. ZOFRAN RE-ASSESSED AT THIS TIME IF NAUSEA RESOLVED, PATIENT REPORTED NO C/O NAUSEA AT THIS TIME. BREAKFAST TRAY GIVEN, ASPIRATION PRECAUTIONS IN PLACE, CALL LIGHT WITHIN REACH. UPDATED ON PLAN OF CARE. WILL CONTINUE TO MONITOR.
[2019-12-09] MEDS: SODIUM CHLORIDE 0.9% 1,000 ML IV SCH ×3 (08:00→17:42)
[2019-12-09 09:00] VITALS: BP 96/59
[2019-12-09] MEDS: PANTOPRAZOLE 40 MG TAB PO SCH (09:42)
[2019-12-09] MEDS: POTASSIUM CHL 20 Meq TABLET PO SCH ×2 (09:42→21:54)
[2019-12-09] MEDS: FUROSEMIDE 20 MG TAB PO SCH (09:42)
[2019-12-09] MEDS: DORZOLAM-TIMOLOL(2/0.5%) OPTH(EYE) SOLN 10ML EACHEYE SCH ×2 (09:43→21:53)
--- NOTE | 2019-12-09 09:50 | NUR ---
BLOOD PRESSURE: PATIENT BP AT 0830 100/79MMHG, RE-ASSESSD FOR 1000 MED PASS, 93/65MMHG HR 78 PATIENT REPORTS FEELING WEAK. WILL INFORM MD VALDERRAMA. BP MEDS HELD AT THIS TIME.
[2019-12-09] MEDS ORDERED: ATENOLOL 50 MG TAB PO SCH (10:00)
[2019-12-09] MEDS ORDERED: amLODIPine BESYLATE 5 MG TAB PO SCH (10:00)
[2019-12-09] MEDS ORDERED: LISINOPRIL 20 MG TAB PO SCH (10:00)
--- NOTE | 2019-12-09 11:00 | NUR ---
MD Lolly EID. ORDERS RECEIVED TO CHANGE FLUIDS FROM 75 TO 125CC/HR AND BP MEDS DISCONTINUED AT THIS TIME.
--- NOTE | 2019-12-09 11:07 | NUR ---
PICC LINE RN AT BEDSIDE. ABLE TO DRAW BLOOD FOR NUC MED SCAN. PATIENT TO BE TAKEN DOWN TO NUC MED.
[2019-12-09] MEDS: metroNIDAZOLE 500 MG TAB PO SCH ×2 (13:59→21:53)
[2019-12-09 16:29] VITALS: BP 124/77
[2019-12-09] MEDS ORDERED: POTASSIUM CHL 20 Meq TABLET PO SCH (18:00)
--- NOTE | 2019-12-09 19:00 | NUR ---
CARE ENDORSED TO MARIANN QUINN.
--- NOTE | 2019-12-09 19:30 | NUR ---
Opening Shift Note Assumed care of patient, awake, AAOx4. No S/S of distress/SOB or pain. On room air and ambulatory. No C/O nausea or emesis. Bed in lowest locked position, side rails up x2, call light within reach. Instructed on POC and to call for assist PRN, will continue to monitor for changes Q1hr and PRN.
[2019-12-09 20:00] VITALS: BP 131/69
[2019-12-09] MEDS: TERAZOSIN HCL 1 MG CAP PO SCH (21:53)
[2019-12-09] MEDS: ATORVASTATIN 20 MG TAB PO SCH (21:54)
[2019-12-09 22:17] VITALS: BP 131/69
[2019-12-10] MEDS: SODIUM CHLORIDE 0.9% 1,000 ML IV SCH (03:52)
[2019-12-10 04:47] VITALS: BP 112/74
[2019-12-10] MEDS: metroNIDAZOLE 500 MG TAB PO SCH (05:58)
[2019-12-10 07:44] VITALS: BP 140/70
[2019-12-10 08:00] VITALS: BP 140/70
--- NOTE | 2019-12-10 09:00 | NUR ---
MD VALDERRAMA AT BEDSIDE INFORMED MD OF LAST HEMOGLOBIN ON 12/09/19 PER MD THAT IS OKAY AND NO ORDERS FOR LAB DRAWN GIVEN. MD WILL PUT IN DISCHARGE ORDERS. WILL FOLLOW ORDERS.
[2019-12-10] MEDS ORDERED: levoFLOXacin 500 MG TAB PO SCH (10:00)
[2019-12-10] MEDS: PANTOPRAZOLE 40 MG TAB PO SCH (10:34)
[2019-12-10] MEDS: POTASSIUM CHL 20 Meq TABLET PO SCH (10:35)
[2019-12-10] MEDS: DORZOLAM-TIMOLOL(2/0.5%) OPTH(EYE) SOLN 10ML EACHEYE SCH (10:35)
[2019-12-10] MEDS: FUROSEMIDE 20 MG TAB PO SCH (10:38)
--- NOTE | 2019-12-10 11:08 | NUR ---
OPENING SHIFT NOTE ASSUMED CARE OF PATIENT FROM DOCTOR OF DENTAL SURGERY RN SILVERIO. PATIENT IS AWAKE, ALERT AND ORIENTED X4. PATIENT HAS NO S/S OF DISTRESS/SOB OR PAIN. INSTRUCTED PATIENT ON POC, PATIENT VERBALIZED UNDERSTANDING. BED IS IN LOWEST POSITION WITH SIDE RAILS RAISED X2, BED WHEELS LOCKED, AND CALL LIGHT IS WITHIN REACH. WILL CONTINUE TO MONITOR.
[2019-12-10 11:11] VITALS: BP 140/70
--- NOTE | 2019-12-10 13:50 | NUR ---
Discharge instructions given as ordered. Encourage to follow up with PMD as instructed. All questions and concerns addressed. Patient verbalized understanding. Medication reconciliation form completed and copy given to patient. Home medications held in Pharmacy returned to patient, and needed vaccines given. IV removed with catheter intact, pressure dressing applied. Telemetry unit returned to ICU. Patient left during lunch break.
== END 2019-12-10 13:53 | disposition home or self-care (01) | DRG 871 ==
LOC: ER 10:00 → EDBD 10:00 → TELE-WESTW 10:01
PROVIDERS: ADMIT Nurse Practitioner; ATTEND Family Medicine
PROC: 0DB68ZX Excision of Stomach, Via Natural or Artificial Opening Endoscopic, Diagnostic (ICD-10-PCS; principal; 2019-12-04 09:50)
PROC: 0DJD8ZZ Inspection of Lower Intestinal Tract, Via Natural or Artificial Opening Endoscopic (ICD-10-PCS; 2019-12-06)
DX: A41.9 Sepsis, unspecified organism (principal); K29.71 Gastritis, unspecified, with bleeding; K29.81 Duodenitis with bleeding; K65.4 Sclerosing mesenteritis; D62 Acute posthemorrhagic anemia; I13.0 Hypertensive heart and chronic kidney disease with heart failure and stage 1 through stage 4 chronic kidney disease, or unspecified chronic kidney disease; I10 Essential (primary) hypertension; E78.00 Pure hypercholesterolemia, unspecified; E11.21 Type 2 diabetes mellitus with diabetic nephropathy; N18.3 Chronic kidney disease, stage 3 (moderate); K57.90 Diverticulosis of intestine, part unspecified, without perforation or abscess without bleeding; I50.9 Heart failure, unspecified; J44.9 Chronic obstructive pulmonary disease, unspecified; N40.0 Benign prostatic hyperplasia without lower urinary tract symptoms; E87.6 Hypokalemia; K29.70 Gastritis, unspecified, without bleeding; K29.80 Duodenitis without bleeding; E11.22 Type 2 diabetes mellitus with diabetic chronic kidney disease; K57.30 Diverticulosis of large intestine without perforation or abscess without bleeding; E78.5 Hyperlipidemia, unspecified; Z79.899 Other long term (current) drug therapy
CPT/HCPCS: 36415; 71045; 74176; 78278; 78452; 80053; 81001; 82270; 83605; 83690; 83735; 83880; 84484; 85007; 85014; 85018; 85025; 85027; 85610; 85730; 86850; 86900; 86901; 86920; 87040; 93005; 93017; 93306; A9560; C9113; G0378; J0153; J1956; J2250; J2405; J2543; J3490